=== PATIENT | female | born 1995 | race Caucasian/White ===

== ENCOUNTER 2021-08-22 12:46 | Outpatient (RCR) | payer OTHER, SELFPAY ==
--- NOTE | ~2021-08-22 | US_ITS ---
EXAMINATION: US OB limited w BPP DATE: 08/22/2021 14:17 INDICATION: Decreased movement. Assess biophysical profile and amniotic fluid index TECHNIQUE: Real-time pelvic ultrasound was performed. The interpreting radiologist was not present fo r the study. COMPARISON: None. FINDINGS: There is a single living fetus in vertex presentation. The placenta is anterior. heart rate is 142 beats per minute (bpm). Amniotic fluid index measures 12.5 cm which is normal. (5th%-95%: 7.7-24 .9 cm at 36 weeks estimated gestational age) Biophysical profile performed by the technologist: breathing (30 sec sustained breathing in 30 minutes): 2 out of 2 movement (3 gross body movements in 30 minutes): 2 out of 2 tone (one episode of npksxrb-ygfpozsgj-qowcmgf limb movement): 2 out of 2 Amniotic fluid pocket (2 cm): 2 out of 2 Total score: 8 out of 8 IMPRESSION: 1. Single living fetus in vertex presentation with heart rate of 142 bpm. 2. Biophysical profile 8 out of 8. Reviewed, dictated and finalized at location B.
[2021-08-22 14:29] VITALS: BP 117/68; PULSE 105
== END 2021-09-22 08:18 | disposition home or self-care (01) ==
LOC: ANHOBOP 12:46
PROVIDERS: PCP Physician Assistant; Visit Provider Obstetrics & Gynecology
DX: O36.8330 Maternal care for abnormalities of the fetal heart rate or rhythm, third trimester, not applicable or unspecified (principal); Z3A.36 36 weeks gestation of pregnancy
CPT/HCPCS: 59025; 76815; 76819

== ENCOUNTER 2021-09-15 16:51 | Inpatient (IN) | payer OTHER, SELFPAY ==
[2021-09-15] VITALS (7 sets, daily range): BP systolic 108–124; BP diastolic 62–81; PULSE 81–100; BMI 39.1
--- NOTE | 2021-09-15 16:51 | LDADM ---
This patient, Rupinder Kaur, was admitted to Labor/Delivery/Recovery 108 on 09/15/21 at 16:51. Plans for labor, pain management and were discussed with patient. Patient/family oriented to hospital policies and general routines including ID bracelet, bed and alarms, visiting hours, pain management, procedures, bathroom and other care routines, personal items, smoking policy, room service/diet and guest tray routines, infant security routines, and visiting hours. Patient/Family are encouraged to report perceived risks to care and to ask questions if they do not understand what they are told or what they should do. See OBIX for further documentation.
--- NOTE | 2021-09-15 17:31 | PC.NURSE ---
Orders received from Dr. Girard to admit pt and start cervidil. [facility] labs. GBS negative per Dr. Girard.
--- NOTE | 2021-09-15 17:45 | WPDANESEPP ---
Anes - Eval Pre Procedure Procedure: labor epidural Date/Time: 09/15/21 17:45 Surgeon: kirstin Preop Diagnosis: pain during labor Pre Op Diagnosis: IOL Patient Data Age: 26 Gender: F Height: Weight: Allergies Allergy/AdvReac Type Severity Reaction Status Date / Time No Known Allergies Allergy Verified 07/22/21 15:45 Home Medications Medication Instructions Recorded Confirmed Type aspirin 81 mg tablet,delayed 81 mg PO DAILY 06/09/21 08/26/21 History release citalopram 20 mg tablet 20 mg PO DAILY 06/09/21 08/26/21 History PNV cmb#95-ferrous fumarate-FA 1 tablet PO DAILY 08/18/21 08/26/21 History [] Patient hx anesthesia problems: none Family hx anesthesia problems: none Results Review: All pre-operative results and documents have been reviewed as part of the pre-operative evaluation. [facility] Past Medical History Medical History (Updated 09/15/21 @ 17:46 by Airam Jenkins CRNA) Anxiety IUP (intrauterine ), incidental Obesity Surgical History Surgical History History of gynecological procedure Nexplanon removal /insertion -08/02/2018. Nexplanon removal 10/07/2020 Family History Family History Grandparent Diabetes mellitus Breast cancer Social History Social History (Updated 06/09/21 @ 13:12 by Floresita Najera MA) Smoking status: Former smoker Alcohol intake: never Substance use: never Substance use type: does not use Gender identity (if verbalized by the patient): Female Sexual Orientation (if Verbalized by the Patient): Straight or Heterosexual Spiritual care concerns: No Exam Day of Procedure 09/15/21 17:45
[2021-09-15 18:07] LABS: Basophils Percent Auto 0.2 % (0.2-1.2); Eosinophils Absolute Auto 0.1 K/mm3 (0-0.3); Eosinophils Percent Auto 0.5 % (0-4.4); Hematocrit 35.8 % (37.0-47.0); Hemoglobin 11.3 g/dL (12.0-15.0); Immature Granulocyte Absolute 0.17 K/mm3 (0.00-0.031); Lymphocytes Absolute Auto 2.86 K/mm3 (0.9-3.2); Lymphocytes Percent Auto 17.4 % (18.3-44.2); Mean Corpuscular HGB Conc 31.6 g/dl (32-36); Mean Corpuscular Hemoglobin 27.6 pg (26-34); Mean Corpuscular Volume 87.3 fl (80-100); Mean Platelet Volume 10.7 fl (7.4-10.4); Monocytes Absolute Auto 1.2 K/mm3 (0.1-0.6); Monocytes Percent Auto 7.1 % (2.6-8.5); Neutrophils Absolute Auto 12.1 K/mm3 (1.3-6.7); Neutrophils Percent Auto 73.8 % (45.5-73.1); Platelet Count Result 361 k/mm3 (150-375); White Blood Count 16.4 K/mm3 (4.5-10.0)
[2021-09-15 18:36] LABS: Alanine Aminotransferase 11 U/L (4-35); Albumin Level 3.4 g/dL (3.5-5.1); Alkaline Phosphatase 144 U/L (38-126); Anion Gap 6 mmol/L (8-16); Aspartate Amino Transferase 19 U/L (14-36); Bilirubin,Total 0.2 mg/dL (0.2-1.3); Blood Urea Nitrogen 14 mg/dL (7-17); Calcium 9.3 mg/dL (8.4-10.2); Carbon Dioxide 22 mmol/L (22-30); Chloride 106 mmol/L (98-107); Estimated CRCL calculation 106 ml/min; Estimated Glomerular Filt Rate > 60; Glucose 82 mg/dL (65-110); Potassium 4.6 mmol/L (3.4-5.0); Sodium 134 mmol/L (137-145)
[2021-09-15] MEDS: DINOPROSTONE 10 MG VAG INSERT VAGINAL (18:45)
[2021-09-16] VITALS (39 sets, daily range): BP systolic 100–160; BP diastolic 60–93; PULSE 69–105; RESP 18–20; TEMP 36.3–36.9
--- NOTE | 2021-09-16 06:33 | PM.IMHP ---
H&P: HPI History of Present Illness Date/Time: 09/16/21 06:33 Rupinder is a 26yo @ 40.1wks (MELODY 09/15/21) who presented to L&D overnight with complaints of swelling, headache, and had been checking her BPs at home and were >140's/90's. Since being on L&D, her BPs have been normal and sh denies any symptoms of PEC. She reports good movement. No ctx, vb, lof. She is s/p cervidil overnight and still only finger tip. Her is complicated by: - Obesity - Anxiety on citalopram Chief Complaint: elevated blood pressure Review of Systems Review of Systems: All systems reviewed & are unremarkable except as noted in HPI and below (HPI) [facility] Past Medical History Medical History Anxiety IUP (intrauterine ), incidental Obesity Surgical History Surgical History History of gynecological procedure Nexplanon removal /insertion -08/02/2018. Nexplanon removal 10/07/2020 Family History Family History Grandparent Diabetes mellitus Breast cancer Social History Social History Smoking status: Never smoker Alcohol intake: never Substance use: never Substance use type: does not use Gender identity (if verbalized by the patient): Female Sexual Orientation (if Verbalized by the Patient): Straight or Heterosexual Spiritual care concerns: No Meds Home Medications and Allergies Home Medications Medication Instructions Recorded Confirmed Type aspirin 81 mg tablet,delayed 81 mg PO DAILY 06/09/21 08/26/21 History release citalopram 20 mg tablet 20 mg PO DAILY 06/09/21 08/26/21 History PNV cmb#95-ferrous fumarate-FA 1 tablet PO DAILY 08/18/21 08/26/21 History [] Allergies Allergy/AdvReac Type Severity Reaction Status Date / Time No Known Allergies Allergy Verified 07/22/21 15:45 Vital Signs Vital Signs - 24 hr 09/15/21 18:02 09/15/21 18:30 09/15/21 19:01 Pulse Rate 100 95 95 Blood Pressure 111/62 116/73 108/65 09/15/21 19:30 09/15/21 20:01 09/15/21 20:31 Pulse Rate 83 82 89 Blood Pressure 117/77 117/81 124/77 09/15/21 23:37 Pulse Rate 81 Blood Pressure 116/62 Exam Const: General: cooperative, comfortable and no acute distress Resp: Effort & Inspection: normal respiratory effort Cardio: Rate: regular rate GI: Inspection: normal to inspection GI Palp: No abdominal tenderness and Yes Soft to palpation : Other: FHT's:130's/ mod betty/ + accels/ no decels - cat 1 TOCO: irritability Cervix: finger tip/50/-3 Membranes: intact Presentation: cephalic Skin: General skin exam: normal color Neuro: General: patient oriented x3 Psych: Appearance: grossly normal Affect: normal affect Attitude: cooperative H&P: Results Labs Labs: Short CBC 09/15/21 Range/Units 18:00 WBC 16.4 H (4.5-10.0) K/mm3 Hgb 11.3 L (12.0-15.0) g/dL Hct 35.8 L (37.0-47.0) % Plt Count 361 (150-375) k/mm3 BMP 09/15/21 18:16 Sodium 134 L Potassium 4.6 Chloride 106 Carbon Dioxide 22 BUN 14 Creatinine 0.90 Glucose 82 Calcium 9.3 Liver Function 09/15/21 Range/Units 18:16 Total Bilirubin 0.2 (0.2-1.3) mg/dL AST 19 (14-36) U/L ALT 11 (4-35) U/L Alkaline Phosphatase 144 H (38-126) U/L Albumin 3.4 L (3.5-5.1) g/dL Assessment and Plan Assessment and plan (1) IUP (intrauterine ), incidental: Code(s): Z33.1 - state, incidental Status: Acute Additional Plan - Admitted to L&D for IOL; s/p Cervidil overnight w/ unfavorable cervix, will now place misoprostol - Labs and BP's stable; P/C pending - Continuous monitoring; currently reassuring - GBS negative - Anesthesia consult PRN pain
--- NOTE | 2021-09-16 06:45 | WPDHPUPDATE1 ---
History and Physical Update Update Date/Time: 09/16/21 06:45 History and Physical has been reviewed, including an updated exam of the patient. There are NO changes in the patient's condition. Risks, benefits, and alternatives have been discussed and questions answered. Patient agrees to proceed with procedure.
[2021-09-16 07:32] LABS: Rapid Plasma Reagin Non-Reactive (NonReactive)
[2021-09-16] MEDS: miSOPROStol 25 MCG TABLET VAGINAL (07:57)
--- NOTE | 2021-09-16 11:05 | PC.NURSE ---
Lab called they will run Uric acid off blood from yesterdays [facility].
[2021-09-16 11:36] LABS: Uric Acid 4.1 mg/dL (2.5-7.5)
[2021-09-16 11:56] LABS: Creatinine Urine 195.3 mg/dL
[2021-09-16 12:05] LABS: Total Protein Urine Random < 5 mg/dL
--- NOTE | 2021-09-16 12:37 | PM.OBPNLAB ---
Pain Control Date/time seen: 09/16/21 12:37 Pain control: tolerating well Pelvic Exam Dilation (cm): 1 (.5) Effacement (%): 60 station: -3 Amniotic membrane status: Intact Contractions Monitor mode: External Contraction pattern: Regular Contraction intensity: Mild Status status: Category l Assessment and Plan Assessment: induction ongoing Plan: continuous present management Comments: - Carrillo balloon placed w/ 30cc of flui @ 1235 - ok to start low dose pit to 4mu - If balloon comes out; can increase pitocin per protocol - anesthesia consult PRN pain
[2021-09-16] MEDS: OXYTOCIN 30 UNITS/NS 500 ML 30 UNITS/500 ML BAG 6 UNITS IV CONT (13:03)
[2021-09-16] MEDS: LACTATED RINGERS 1,000 ML 125 ML IV CONT (13:03)
[2021-09-16] MEDS: ONDANSETRON INJ 4 MG/2 ML VIAL IV PUSH (16:15)
--- NOTE | 2021-09-16 16:47 | PM.OBPNLAB ---
Pain Control Date/time seen: 09/16/21 16:47 Pain control: tolerating well Comments: likely wanting epidural soon Pelvic Exam Dilation (cm): 4 Effacement (%): 75 station: -2 Amniotic membrane status: Ruptured (SROM, clear 1603) Contractions Monitor mode: External Contraction frequency: 2 Contraction pattern: Regular Contraction intensity: Moderate Status status: Category l Assessment and Plan Pitocin rate (mU/min): 4 Assessment: induction ongoing Plan: continuous present management
[2021-09-16] MEDS: fentaNYL CITRATE INJ (*CRX) 100 MCG/2 ML VIAL 50 MCG IV PUSH ×4 (16:50→22:09)
[2021-09-17] VITALS (115 sets, daily range): BP systolic 93–164; BP diastolic 35–131; PULSE 71–129; RESP 16; TEMP 36.3–37.7; O2SAT 93–100
[2021-09-17] MEDS: LACTATED RINGERS 1,000 ML 125 ML IV CONT ×3 (00:25→08:52)
[2021-09-17] MEDS: PHENYLEPHRINE 1,000 MCG/10 ML SYRINGE 100 MCG IV PUSH ×2 (02:08→02:13)
--- NOTE | 2021-09-17 07:01 | PM.OBPNLAB ---
Pain Control Date/time seen: 09/17/21 07:01 Pain control: epidural Pelvic Exam Dilation (cm): 8 Effacement (%): 100 station: -1 Amniotic membrane status: Ruptured (SROM, clear 1603 (09/16/21)) Contractions Monitor mode: Internal Contraction frequency: 3 (-4) Contraction pattern: Regular Contraction intensity: Moderate Status status: Category l Comments: late decels noted after epidural due to hypotension; pitocin stopped, IV fluid bolus, oxygyn and position change occured with resolution back to baseline; pitocin restarted at 0330 Assessment and Plan Pitocin rate (mU/min): 12 Assessment: active labor Plan: continuous present management Comments: - protracted labor with inadequate contractions - will continue increasing pitocin
[2021-09-17] MEDS: AMPICILLIN 2 GM/NS 100 ML 2 GM/100 ML BAG IVPB (10:02)
--- NOTE | 2021-09-17 12:37 | PM.OBPRVD ---
OB - Delivery Note Procedure Delivery date: 09/17/21 Events: Elective Induction of Labor Induction method: Per Misoprostol Protocol, Per Cervidil Protocol and Other (shoemaker balloon) Delivery augmentation: Pitocin Delivery monitor: External FHT and Internal Uterine Route of delivery: Laceration Description: Vaginal Delivery repair: vicryl Specimen: No Quantitative Blood Loss (ml): 100 Anesthesia type: Epidural Disposition: Floor Baby Date of : 09/17/21 Time of : 12:17 Weeks of gestation at delivery: 40 (.2) Infant gender: Male Weight (pounds): 9 Weight (ounces): 13 presentation: vertex position: Right Occiput Anterior Placenta delivery description: Expressed Cord Vessel Description: 3 Vessels and Delayed Cord Clamping score one minute: 8 score five minutes: 9 Narrative: Rupinder progressed to complete dilation after a long induction and protracted active labor course due to inadequate contractions. She pushed with good maternal effort for approximately 1 hour and delivered the head over intact perineum. She easily delivered the 's shoulders and body without complication. The was immediately placed skin to skin and had spontaneous cry. His mouth and nose were bulb suction. Delayed cord clamping was performed. A segment of the cord was collected for cord gases. The remaining cord blood was collected for typing. With Pitocin running and gentle downward traction on the cord, the placenta delivered without complications. The fundus was found to be firm with minimal bleeding. Patient was examined and a small vaginal laceration was noted. It was repaired in the normal fashion using 2-0 Vicryl. Good hemostasis was noted. The uterus remained firm with minimal bleeding. Sponge, lap, instrument, needle counts were correct at the end the procedure. Mom and baby were left bonding in the birthing suite in stable condition. [facility] Delivery Billing Delivery Delivery: Delivery Charge
[2021-09-17] MEDS: OXYTOCIN 30 UNITS/NS 500 ML 30 UNITS/500 ML BAG 125 UNITS IV CONT (12:44)
[2021-09-17] MEDS: ONDANSETRON INJ 4 MG/2 ML VIAL IV PUSH (13:24)
[2021-09-17] MEDS: WITCH HAZEL 40 PADS 1 PAD TOPICAL (14:47)
[2021-09-17] MEDS: BENZOCAINE 20% AER SPR (*SP) 56 GM CAN 1 SPRAY TOPICAL (14:47)
[2021-09-17] MEDS: ACETAMINOPHEN 325 MG TABLET 650 MG PO (22:40)
[2021-09-18 04:00] VITALS: BP 109/71; PULSE 80; RESP 16; TEMP 36.8; O2SAT 97
[2021-09-18 05:20] LABS: Hematocrit 30.3 % (37.0-47.0); Hemoglobin 9.8 g/dL (12.0-15.0)
--- NOTE | 2021-09-18 07:11 | PM.OBPNVD ---
OB - PN: Subj Subjective Date/time seen: 09/18/21 07:11 Narrative: PPD#1 Rupinder reports doing well today. 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 Her pain is controlled. She is tolerating regular diet, voiding, passing gas, and ambulating without issues. She is breast feeding but has very sore nipples; so also bottle feeding. She would like her son circumcised. OB - PN: Obj Data Labs CBC & Chem 7: 09/18/21 04:06 09/15/21 18:16 Labs: Laboratory Results - last 24 hr 09/18/21 04:06 Hgb 9.8 L Hct 30.3 L OB - PN A/P Assessment and Plan (1) Status post vaginal delivery: Status: Acute Plan day: 1 Plan: routine care Comments: - Discharge home tomorrow; will have help with pumping/breast feeding - Pelvic rest; take meds as prescribed - ER return precautions: fever, n/v/abd pain, bleeding, HTN Time Spent With Patient Time: Total time spent is greater than 50% in coordination of care (as documented) at patient's floor/unit and/or counseling patient: Review of Systems Constitutional: Constitutional: Denies chills, Denies fever(s) and Denies headache(s) Eyes: Eyes: Denies change in vision ENT: Denies dizziness and Denies headache(s) Cardiovascular: Cardiovascular: Denies chest pain, Denies palpitations and Denies dyspnea Respiratory: Respiratory: Denies cough and Denies dyspnea Gastrointestinal: Gastrointestinal: Denies nausea and Denies vomiting Neurologic: Denies dizziness and Denies headache(s) Endocrine: Endocrine: Denies palpitations Exam Const: General: cooperative, comfortable and no acute distress Orientation/consciousness: patient oriented x3 Resp: Effort & Inspection: normal respiratory effort Auscultation: clear to auscultation bilaterally Cardio: Rate: regular rate GI: Inspection: non-distended GI Palp: No abdominal tenderness and Yes Soft to palpation Auscultation: normal bowel sounds : Other: fundus firm Skin: General skin exam: normal color Neuro: General: patient oriented x3 Extrem: General: normal to inspection Psych: Appearance: grossly normal Affect: normal affect Attitude: cooperative
[2021-09-18 07:55] VITALS: BP 120/68; PULSE 85; RESP 20; TEMP 36.3; O2SAT 99
[2021-09-18] MEDS: MULTIVIT/MIN/PREN/FOL AC/IRON TABLET 1 TAB PO (08:21)
[2021-09-18] MEDS: DOCUSATE SODIUM 100 MG CAPSULE PO (08:21)
[2021-09-18] MEDS: POLYSACCHARIDE IRON COMPLEX 150 MG CAPSULE PO (08:21)
[2021-09-18] MEDS: CITALOPRAM HYDROBROMIDE 20 MG TABLET PO (08:21)
[2021-09-18] MEDS: IBUPROFEN 600 MG TABLET PO (08:22)
[2021-09-18 11:42] VITALS: BP 116/67; PULSE 77; RESP 18; TEMP 36.4; O2SAT 98
--- NOTE | 2021-09-18 13:39 | PC.NURSE ---
[id number] Introductions were made, then consulted with patient to assess needs related to . Mother led the conversation with her experience feeding her so far. Breast are clonical in shape and wide apart from each other. Mother works well with her infant with encouragement and education. Encouraged understanding of the benefits of skin to skin (unwrapping infant and placing vertically on her chest), responsive feeding and how to watch for early feeding signs, frequency of feeding on demand about every 8-12 times in 24 hours (every 2-3 hours), milk production, duration of feeding, signs of adequate intake/output and how to record on the feeding sheet. Demonstrated stimulating to eat after mother states infant is sleepy and doesn't want to breastfeed. Mother has a bottle out on the bed preparing to feed her infant. Clarified her plan to feed her baby. Patient declines working on latch her . Information regarding pumping, milk production, and human milk supply. Mother makes a decision to bottle feed her infant. Resources used to facilitate learning were used with the mom and baby guide. Mother voiced understanding of education. Reported to the primary RN.
--- NOTE | 2021-09-18 14:28 | WPDANLDPN2 ---
Anes-Prog Note L&D Date/Time: 09/18/21 14:28 Comfortable throughout: labor and delivery Neuraxial method: epidural Epidural/Spinal procedure site: clean & non-tender Neuro status: Neuro function grossly intact. Cardiovascular status: normal Respiratory status: normal Airway patency: baseline Mental status: baseline Post-Op hydration status: normal Vital Signs: Last Vital Signs Temp 36.4 C 09/18/21 11:42 Pulse 77 09/18/21 11:42 Resp 18 09/18/21 11:42 BP 116/67 09/18/21 11:42 Pulse Ox 98 09/18/21 11:42 Pain score (VAS): 0 Post-procedural complaints: none Patient feedback: Patient satisfied with anesthetic care.
--- NOTE | 2021-09-18 14:45 | PC.NURSE ---
Patient viewed the discharge video Mother & Baby Care, The First Two Weeks . Patient was given the opportunity and encouraged to ask questions. Patient verbalized understanding of information shared and has been given the mother/baby guide for home reference.
--- NOTE | 2021-09-19 12:05 | PM.OBDSVD ---
DS: Admitting Diagnosis Discharge Date 09/18/21 Admitting Diagnosis Induction of labor DS: Discharge Diagnosis Discharge Diagnosis (1) Status post vaginal delivery: Status: Acute OB - DS: Summary OB Procedures : Ultrasound OB Procedures Intrapartum: Spontaneous Vag Delivery OB Procedures: : None Peripartum Data Infant Delivery Method: Natural Vaginal Laceration Description: Vaginal - 1st Degree complications: none 1: Gender: Male Disposition of : home Status at Discharge Functional status at discharge: independent ambulation Overall status at discharge: patient is back to baseline Time Spent with Patient Time attestation: Total time spent providing and/or coordinating discharge services: Time spent: Less than 30 minutes Exam Const: General: cooperative, comfortable and no acute distress Orientation/consciousness: patient oriented x3 Resp: Effort & Inspection: normal respiratory effort Auscultation: clear to auscultation bilaterally Cardio: Rate: regular rate GI: Inspection: non-distended GI Palp: No abdominal tenderness and Yes Soft to palpation Auscultation: normal bowel sounds : Other: fundus firm Skin: General skin exam: normal color Neuro: General: patient oriented x3 Extrem: General: normal to inspection Psych: Appearance: grossly normal Affect: normal affect Attitude: cooperative Discharge Plan Discharge Attending physician on discharge: Ginger Girard Consulting providers: Airam Jenkins ; Lynne Szymanski Discharging Clinician: Ginger Girard Anticipated Discharge Date/Time: 09/18/21 16:00 Patient Disposition: Home, Self-Care Activity: may shower, no straining and pelvic rest Diet: regular Discharge Instructions: Education: Mom and Baby Guide and Preeclampsia Handout Given to: Mother Follow-Up: Call your delivering provider's office for an appointment to be seen in: 4 weeks Mom and baby should come to the [facility] for the follow-up appointment. Appointment Date/Time: September 19, 2021 at 12:00 pm What to expect at your follow-up visit: Physical Assessment Call [phone] if you are unable to keep your appointment time. BREAST CARE: * Wear a snug supportive bra. * For engorgement discomfort: Bottle Feeding: * May apply ice packs EPISIOTOMY/PERINEAL CARE: * Until bleeding stops, use your wesly bottle after urinating * Change your pad frequently throughout the day * You may take sitz baths several times a day (fill your bathtub with warm water and soak for 20 minutes.) Do NOT bathe in the water * No tub baths until seen by your physician - You may shower ACTIVITY: * Rest as much as possible. * Do not exercise or lift anything heavier than your baby (such as laundry or other children.) * Avoid stairs or driving as much as possible. * Do not put anything into the vagina. No douching, tampons, or sexual activity until seen by physician. NOTIFY PHYSICIAN IF YOU HAVE ANY QUESTIONS OR IF ANY OF THE FOLLOWING SYMPTOMS OCCUR: * If your episiotomy or stitches becomes red, swollen, or more painful than what you have experienced in the hospital. * If your vaginal bleeding becomes foul smelling. * If your vaginal bleeding becomes more heavy than a period or if your bleeding changes from pink to bright red. However, you may pass an occasional walnut-sized clot once or twice for the first week . * If you experience a sharp, shooting pain in you calves. * If you discover a hard, reddened area on your breast or if you experience flu-like symptoms. DIET: * Eat regular, well-balanced meals. * Drink plenty of fluids daily. Stand Alone Forms: General Discharge Information Follow-up/Referrals: Ginger Girard MD [Physician] - 4 Weeks Discharge Medications: New acetaminophen [Mapap (acetaminophen)] 325 mg Tablet 650 mg PO Q6H PRN (Reason: M
[2021-09-19 12:13] VITALS: BP 131/65; PULSE 71; RESP 22; TEMP 36.9; O2SAT 100
== END 2021-09-18 15:30 | disposition home or self-care (01) | DRG 807 ==
LOC: ANHLDR 17:01 → ANHOB2 09-17 15:11
PROVIDERS: Admitting Provider Obstetrics & Gynecology; PCP Physician Assistant; Visit Provider Obstetrics & Gynecology
DX: O42.92 Full-term premature rupture of membranes, unspecified as to length of time between rupture and onset of labor (principal); Z37.0 Single live birth; Z3A.40 40 weeks gestation of pregnancy; O13.4 Gestational [pregnancy-induced] hypertension without significant proteinuria, complicating childbirth; O36.8330 Maternal care for abnormalities of the fetal heart rate or rhythm, third trimester, not applicable or unspecified; O99.344 Other mental disorders complicating childbirth; F41.9 Anxiety disorder, unspecified; O99.214 Obesity complicating childbirth; E66.9 Obesity, unspecified
CPT/HCPCS: 36415; 80053; 81050; 82570; 84156; 84550; 85014; 85018; 85025; 86592; 86850; 86900; 86901; A9270; J0290; J2370; J2405; J2590; J2795; J3010; J7120

== ENCOUNTER 2021-10-10 06:04 | Emergency (ER) | payer OTHER, SELFPAY ==
--- NOTE | ~2021-10-10 | XR_ITS ---
EXAMINATION: XR chest 2V DATE: 10/10/2021 07:02 INDICATION: Left chest pain. TECHNIQUE: Frontal and lateral views of the chest were obtained. COMPARISON: None. FINDINGS: The chest demonstrates clear lungs without pneumonia, pleural effusion, or pneumothorax. Th e heart size is normal. IMPRESSION: 1. No acute cardiopulmonary disease. Reviewed, dictated and finalized at location A.
[2021-10-10 06:05] VITALS: BP 140/80; PULSE 74; RESP 18; TEMP 36.1; O2SAT 100
--- NOTE | 2021-10-10 06:12 | ECG_ITS ---
Measurements Intervals [place] Rate: 74 P: 11 [place]: 128 QRS: 24 QRSD: 95 T: 35 QT: 370 QTc: 411 Interpretive Statements SINUS RHYTHM NORMAL ECG Electronically Signed On 10-10-2021 17:08:24 CDT by Ab Marquez D.O.
[2021-10-10 06:18] VITALS: BP 140/92; PULSE 80; RESP 15; O2SAT 100
[2021-10-10] MEDS: KETOROLAC 30 MG/ML VIAL (*BKC) IV PUSH (06:22)
--- NOTE | 2021-10-10 06:35 | ED.CHESTPAIN ---
HPI - Chest Pain General Chief Complaint: Chest Pain <Julian Llamas MD - Last Filed: 10/10/21 06:39> Stated Complaint: chest pain <Julian Llamas MD - Last Filed: 10/10/21 06:39> Time Seen by Provider: 10/10/21 06:11 <Julian Llamas MD - Last Filed: 10/10/21 06:39> History of Present Illness HPI narrative: Patient is a 26-year-old female who presents ER with central chest pain. Began in the last hour. Sharp. No aggravating alleviating factors. Took a Tums without improvement. No bad taste in back of mouth. No nausea or vomiting. Patient is 2 weeks from a vaginal delivery. No new lower extremity swelling or muscle cramps. No fevers or chills or sweats. No productive cough. <Julian Llamas MD - Last Filed: 10/10/21 06:39> Related Data Allergies/Adverse Reactions: Allergies Allergy/AdvReac Type Severity Reaction Status Date / Time No Known Allergies Allergy Verified 07/22/21 15:45 <Julian Llamas MD - Last Filed: 10/10/21 06:39> Review of Systems Review of Systems: All systems reviewed & are unremarkable except as noted in HPI and below <Julian Llamas MD - Last Filed: 10/10/21 06:39> Constitutional: Constitutional: Denies chills, Denies fatigue and Denies fever(s) <Julian Llamas MD - Last Filed: 10/10/21 06:39> ENT: Denies nasal congestion and Denies sore throat <Julian Llamas MD - Last Filed: 10/10/21 06:39> Cardiovascular: Cardiovascular: Reports chest pain, Denies rapid heart rate and Denies radiating jaw, neck or arm pain <Julian Llamas MD - Last Filed: 10/10/21 06:39> Respiratory: Respiratory: Denies chest congestion, Denies cough and Denies dyspnea <Julian Llamas MD - Last Filed: 10/10/21 06:39> Gastrointestinal: Gastrointestinal: Denies abdominal pain, Denies nausea and Denies vomiting <Julian Llamas MD - Last Filed: 10/10/21 06:39> Musculoskeletal: Musculoskeletal: Denies back pain and Denies myalgias <Julian Llamas MD - Last Filed: 10/10/21 06:39> PMFSH Past Medical History Medical History: Medical History Anxiety IUP (intrauterine ), incidental Obesity <Julian Llamas MD - Last Filed: 10/10/21 06:39> Surgical History Surgical History: Surgical History History of gynecological procedure Nexplanon removal /insertion -08/02/2018. Nexplanon removal 10/07/2020 <Julian Llamas MD - Last Filed: 10/10/21 06:39> Family History Family History: Family History Grandparent Diabetes mellitus Breast cancer <Julian Llamas MD - Last Filed: 10/10/21 06:39> Social History Social History: Social History Smoking status: Never smoker Alcohol intake: never Substance use: never Substance use type: does not use Gender identity (if verbalized by the patient): Female Sexual Orientation (if Verbalized by the Patient): Straight or Heterosexual Spiritual care concerns: No <Julian Llamas MD - Last Filed: 10/10/21 06:39> Exam Narrative: GENERAL: Well-appearing, well-nourished, and in no acute distress. HEAD: Normocephalic, atraumatic. CHEST: Clear to auscultation. No respiratory distress. No reproducible tenderness. HEART: Regular rate and rhythm. Normal peripheral pulses. ABDOMEN: Soft, nontender, nondistended. EXTREMITIES: Normal range of motion. No edema. SKIN: Warm, dry, no rash. NEURO: Alert and oriented x3. PSYCH: Normal mood and affect. <Julian Llamas MD - Last Filed: 10/10/21 06:39> Course Reevaluation(s) Reevaluation #1: Currently patient is asymptomatic, no chest pain, feels much better after Toradol injection. Patient was notified that if the second set of troponin is negative she will be discharged home.
[2021-10-10 06:37] LABS: Basophils Absolute Auto 0.1 K/mm3 (0.0-0.1); Basophils Percent Auto 0.4 % (0.2-1.2); Eosinophils Absolute Auto 0.3 K/mm3 (0-0.3); Eosinophils Percent Auto 2.6 % (0-4.4); Hematocrit 41.8 % (37.0-47.0); Hemoglobin 13.2 g/dL (12.0-15.0); Immature Granulocyte Absolute 0.04 K/mm3 (0.00-0.031); Immature Granulocyte Percent A 0.3 % (0-0.5); Lymphocytes Absolute Auto 3.81 K/mm3 (0.9-3.2); Lymphocytes Percent Auto 32.5 % (18.3-44.2); Mean Corpuscular HGB Conc 31.6 g/dl (32-36); Mean Corpuscular Hemoglobin 27.3 pg (26-34); Mean Corpuscular Volume 86.4 fl (80-100); Mean Platelet Volume 9.8 fl (7.4-10.4); Monocytes Percent Auto 8.5 % (2.6-8.5); Neutrophils Absolute Auto 6.5 K/mm3 (1.3-6.7); Neutrophils Percent Auto 55.7 % (45.5-73.1); Platelet Count Result 402 k/mm3 (150-375); Red Blood Count 4.84 M/mm3 (4.2-5.4); Red Cell Distribution Width 14.6 % (11.5-14.5); White Blood Count 11.7 K/mm3 (4.5-10.0)
[2021-10-10 06:50] LABS: Prothrombin Time 12.6 Seconds (11.1-14.7)
[2021-10-10 06:51] LABS: Anion Gap 10 mmol/L (8-16); Blood Urea Nitrogen 15 mg/dL (7-17); Calcium 9.2 mg/dL (8.4-10.2); Carbon Dioxide 21 mmol/L (22-30); Chloride 107 mmol/L (98-107); Estimated CRCL calculation 101 ml/min; Estimated Glomerular Filt Rate > 60; Glucose 95 mg/dL (65-110); Partial Thromboplastin Time 33.9 SECONDS (22.3-36.8); Potassium 4.6 mmol/L (3.4-5.0); Sodium 138 mmol/L (137-145)
[2021-10-10 06:53] LABS: D Dimer 0.39 ug/mL (<0.48)
[2021-10-10 06:58] LABS: Troponin I < 0.012 ng/mL (0.000-0.034)
[2021-10-10 07:23] VITALS: BP 125/73; PULSE 86; RESP 18; O2SAT 99
--- NOTE | 2021-10-10 07:23 | PC.NURSE ---
Took report from the midnight nurse, pt resting in bed, family at bedside.
[2021-10-10 08:49] VITALS: BP 121/70; PULSE 80; RESP 18; O2SAT 100
[2021-10-10 09:54] LABS: Troponin I < 0.012 ng/mL (0.000-0.034)
[2021-10-10 10:48] VITALS: BP 123/78; PULSE 82; RESP 18; O2SAT 98
== END 2021-10-10 10:50 | disposition home or self-care (01) ==
PROVIDERS: Emergency Medicine; Emergency Provider Emergency Medicine; PCP Physician Assistant
DX: R07.89 Other chest pain (principal); F41.9 Anxiety disorder, unspecified
CPT/HCPCS: 36415; 71046; 80048; 84484; 85025; 85380; 85610; 85730; 93005; 96374; 99284; J1885

== ENCOUNTER 2021-11-19 17:27 | Outpatient (CLI) | payer OTHER, SELFPAY ==
[2021-11-19 18:23] LABS: Beta HCG Quantitative < 2.39 mIU/ML
== END 2021-11-19 17:28 | disposition home or self-care (01) ==
PROVIDERS: PCP Physician Assistant; Visit Provider Obstetrics & Gynecology
DX: N92.6 Irregular menstruation, unspecified (principal)
CPT/HCPCS: 36415; 84702

== ENCOUNTER 2023-05-19 18:40 | Emergency (ER) | payer OTHER, SELFPAY ==
[2023-05-19 18:52] VITALS: BP 120/82; PULSE 89; RESP 18; TEMP 36.3; O2SAT 100
--- NOTE | 2023-05-19 18:57 | ED.GENADULT ---
HPI - General Adult General Chief complaint: Upper Respiratory Infection Stated complaint: Congestion/Ear Problem Source: patient, RN notes reviewed and old records reviewed Mode of arrival: ambulatory Limitations: no limitations History of Present Illness HPI narrative: 28-year-old female presents to [facility] with complaints cough, congestion, sinus pressure, bilateral ear pressure, chills, sweating this started Wednesday. Patient states symptoms worsened Wednesday. Patient states son is sick too. Patient taking [id number] medications with no relief. Patient denies weakness, dizziness, chest pain, shortness of breath. MD complaint: Cough, congestion Onset (ago): day(s) (4) Related Data Home Medications Medication Instructions Recorded Confirmed etonogestrel 68 mg subdermal 1 implant subdermal ONCE 01/20/22 05/19/23 implant (Nexplanon) Allergies Allergy/AdvReac Type Severity Reaction Status Date / Time No Known Allergies Allergy Verified 05/19/23 18:58 Review of Systems Constitutional: Constitutional: Reports no additional constitutional complaints, Reports body ache(s), Denies chills, Denies fatigue, Reports fever(s) and Denies headache(s) Eyes: Eyes: Reports no additional eye complaints and Denies blurry vision ENT: Reports system reviewed and no additional complaints, except as documented, Denies vertigo, Denies dizziness, Denies ear discharge, Reports otalgia, Denies facial pain, Denies headache(s), Reports nasal congestion, Reports nasal discharge, Reports sinus pain, Denies sinus pressure and Denies sore throat Cardiovascular: Cardiovascular: Reports no additional cardiovascular complaints, Denies chest pain, Denies chest pain at rest, Denies rapid heart rate and Denies dyspnea Respiratory: Respiratory: Reports no additional respiratory complaints, Reports chest congestion, Reports cough, Denies pain on inspiration, Denies pain with cough and Denies dyspnea Gastrointestinal: Gastrointestinal: Denies abdominal pain, Denies diarrhea, Denies nausea and Denies vomiting Integumentary/Breasts: Skin/Breast: Denies rash Neurologic: Reports system reviewed and no additional complaints, except as documented, Denies vertigo, Denies dizziness and Denies headache(s) Endocrine: Endocrine: Denies fatigue PMFSH Past Medical History Medical History Anxiety IUP (intrauterine ), incidental Nexplanon insertion 11/20/2021 Obesity Surgical History Surgical History History of gynecological procedure Nexplanon removal /insertion -08/02/2018. Nexplanon removal 10/07/2020 Family History Family History Grandparent Diabetes mellitus Breast cancer Social History Social History Smoking status: Never smoker Alcohol intake: never Substance use: never Substance use type: does not use Lack of Transportation: No Lack of Food: Never True Current Housing: I Have Housing Concerned About Future Housing: No Difficulty Paying Gas/Electric Bills: No Difficulty Paying for Meds: No Currently Unemployed: No Education: High School Diploma/GED Difficulty w/ Childcare or Family Care: No Living arrangements: with family Occupation/Education: occupation Gender identity (if verbalized by the patient): Female Sexual Orientation (if Verbalized by the Patient): Straight or Heterosexual Spiritual care concerns: No Comments At the time of my signature, I reviewed and agree with the nursing past medical, surgical, social, and family history. There is no relevant family history pertinent to the patient complaint. Exam Const: General: cooperative, healthy appearing, no acute distress and well nourished Nutritional Appearance: well nourished Orientation/consciousness:
== END 2023-05-19 19:20 | disposition home or self-care (01) ==
PROVIDERS: Emergency Provider Registered Nurse; PCP Physician Assistant
DX: J10.1 Influenza due to other identified influenza virus with other respiratory manifestations (principal); Z20.822 Contact with and (suspected) exposure to COVID-19; E66.9 Obesity, unspecified; Z68.33 Body mass index [BMI] 33.0-33.9, adult; F41.9 Anxiety disorder, unspecified
CPT/HCPCS: 87426; 87804; 99213; C9803; G0463

== ENCOUNTER 2023-09-10 12:26 | Emergency (ER) | payer OTHER, SELFPAY ==
--- NOTE | ~2023-09-10 | XR_ITS ---
EXAMINATION: XR ankle RT min 3V DATE: 09/10/2023 12:59 INDICATION: Right ankle injury. TECHNIQUE: 4 views of right ankle were obtained. COMPARISON: None. FINDINGS: Bone alignment is normal. No fracture. Joint spaces are normal. There is ankle soft tissue swelling. IMPRESSION: 1. No fracture. Reviewed, dictated and finalized at location A. IMPRESSION: 1. No fracture.
[2023-09-10 12:34] VITALS: BP 99/66; PULSE 72; RESP 16; TEMP 36.8; O2SAT 100
--- NOTE | 2023-09-10 12:46 | ED.LOWEXIN ---
HPI - Extremity Injury (Lower) General Chief Complaint: Extremity Injury, Lower Stated Complaint: INJURED R ANKLE Time Seen by Provider: 09/10/23 12:42 Source: patient and RN notes reviewed Mode of arrival: ambulatory Limitations: no limitations History of Present Illness HPI Narrative: Patient presents today complaining of right ankle pain. She was at home last night and twisted her ankle in all hole outside. Currently rates her pain 6/10. She has tried no medication for symptoms prior to arrival. She has been ambulatory since the injury. Denies numbness or tingling. Related Data Home Medications Medication Instructions Recorded Confirmed No Home Medications 09/10/23 09/10/23 Allergies Allergy/AdvReac Type Severity Reaction Status Date / Time No Known Allergies Allergy Verified 09/10/23 12:50 Review of Systems Review of Systems: CONSTITUTIONAL: Denies body aches, fever, chills, or sweats. EYES: Denies visual changes, redness, or discharge. ENT: Denies rhinorrhea, congestion, sore throat, or otalgia. CARDIOVASCULAR: Denies chest pain, palpitations, or edema. RESPIRATORY: Denies cough or dyspnea. GASTROINTESTINAL: Denies abdominal pain, nausea, vomiting, or diarrhea. GENITOURINARY: Denies dysuria or hematuria. SKIN: Denies rash, itching, or wounds. MUSCULOSKELETAL: Denies back pain, or myalgia.+ right ankle pain NEUROLOGIC: Denies headache, numbness, tingling, or weakness. PSYCH: Denies depression or anxiety. [facility] Past Medical History Medical History Anxiety IUP (intrauterine ), incidental Nexplanon insertion 11/20/2021 Obesity Surgical History Surgical History History of gynecological procedure Nexplanon removal /insertion -08/02/2018. Nexplanon removal 10/07/2020 Family History Family History Grandparent Diabetes mellitus Breast cancer Social History Social History Smoking status: Never smoker Alcohol intake: never Substance use: never Substance use type: does not use Lack of Transportation: No Lack of Food: Never True Current Housing: I Have Housing Concerned About Future Housing: No Difficulty Paying Gas/Electric Bills: No Difficulty Paying for Meds: No Currently Unemployed: No Education: High School Diploma/GED Difficulty w/ Childcare or Family Care: No Living arrangements: with family Occupation/Education: occupation Gender identity (if verbalized by the patient): Female Sexual Orientation (if Verbalized by the Patient): Straight or Heterosexual Spiritual care concerns: No Comments At time of signature, I have reviewed and agree with nursing past medical, surgical, social and family history unless otherwise noted. Please see nursing chart for further information. There is no relevant family history pertinent to the presenting complaint Exam Narrative: GENERAL: Well-appearing, well-nourished, and in no acute distress. HEAD: Normocephalic, atraumatic. EYES: EOMI. No redness or drainage. Conjunctivae normal. ENT: Mucous membranes pink and moist. NECK: Normal AROM. CHEST: No respiratory distress. EXTREMITIES: Right ankle: Tenderness and moderate edema to the l lateral malleolus. No tenderness anteriorly, posteriorly, or medially. No tenderness to the foot. Distal sensation intact. Capillary refill normal. Pedal pulse normal. Full range of motion. SKIN: Warm, dry, no rash. Capillary refill normal. Normal skin turgor. NEURO: No focal deficits. Alert and oriented x3. Gait steady. PSYCH: Normal affect. No signs of depression or anxiety. Course Course Level of Care: Express Care Visit Vital Signs Vital signs: Vital Signs Temperature 98.2 F 09/10/23 12:34 Pulse Rate
== END 2023-09-10 13:14 | disposition home or self-care (01) ==
PROVIDERS: Emergency Provider Nurse Practitioner; PCP Physician Assistant
DX: S93.401A Sprain of unspecified ligament of right ankle, initial encounter (principal); X50.9XXA Other and unspecified overexertion or strenuous movements or postures, initial encounter; E66.9 Obesity, unspecified; Z68.28 Body mass index [BMI] 28.0-28.9, adult
CPT/HCPCS: 73610; 99213; G0463

== ENCOUNTER 2024-01-17 14:59 | Emergency (ER) | payer OTHER, SELFPAY ==
--- NOTE | ~2024-01-17 | XR_ITS ---
EXAMINATION: XR chest 2V DATE: 01/17/2024 15:27 INDICATION: Syncope TECHNIQUE: PA and lateral views of the chest were obtained. COMPARISON: Chest radiograph dated 10/10/2021 FINDINGS: The lungs remain clear with no focal airspace opacities, pulmonary edema, pleural effusion or pneumot horax. The cardiomediastinal silhouette is normal. Mild thoracic dextrocurvature. IMPRESSION: 1. No acute cardiopulmonary disease. Reviewed, dictated and finalized at location A.
[2024-01-17 15:02] VITALS: BP 119/71; PULSE 84; RESP 14; TEMP 36.7; O2SAT 100
--- NOTE | 2024-01-17 15:03 | ECG_ITS ---
Test Date: 2024-01-17 15:05:51 Measurements Intervals [place] Rate: 74 P: 59 WA: 143 QRS: 21 QRSD: 95 T: 40 QT: 368 QTc: 408 Interpretive Statements SINUS RHYTHM WITH SINUS ARRHYTHMIA BASELINE ARTIFACT- I, II, III, AVR, AVL, AVF NORMAL ECG No previous ECG available for comparison Electronically Signed On 01-17-2024 17:32:40 CDT by Ab Marquez D.O.
[2024-01-17 15:16] LABS: Basophils Absolute Auto 0.1 K/mm3 (0.0-0.1); Basophils Percent Auto 0.4 % (0.2-1.2); Eosinophils Absolute Auto 0.1 K/mm3 (0-0.3); Eosinophils Percent Auto 0.9 % (0-4.4); Hematocrit 40.9 % (37.0-47.0); Hemoglobin 14.2 g/dL (12.0-15.0); Immature Granulocyte Absolute 0.06 K/mm3 (0.00-0.031); Immature Granulocyte Percent A 0.4 % (0-0.5); Lymphocytes Absolute Auto 3.16 K/mm3 (0.9-3.2); Lymphocytes Percent Auto 22.2 % (18.3-44.2); Mean Corpuscular HGB Conc 34.7 g/dl (32-36); Mean Corpuscular Hemoglobin 29.6 pg (26-34); Mean Corpuscular Volume 85.4 fl (80-100); Mean Platelet Volume 9.6 fl (7.4-10.4); Monocytes Absolute Auto 0.7 K/mm3 (0.1-0.6); Neutrophils Absolute Auto 10.1 K/mm3 (1.3-6.7); Neutrophils Percent Auto 71.1 % (45.5-73.1); Platelet Count Result 323 k/mm3 (150-375); Red Blood Count 4.79 M/mm3 (4.2-5.4); Red Cell Distribution Width 12.6 % (11.5-14.5); White Blood Count 14.2 K/mm3 (4.5-10.0)
[2024-01-17 15:26] LABS: Alanine Aminotransferase 16 U/L (6-35); Albumin Level 4.4 g/dL (3.5-5.1); Alkaline Phosphatase 52 U/L (38-126); Anion Gap 11 mmol/L (4-12); Aspartate Amino Transferase 20 U/L (14-36); Bilirubin,Total 0.6 mg/dL (0.2-1.3); Blood Urea Nitrogen 14 mg/dL (7-17); Calcium 9.3 mg/dL (8.4-10.2); Carbon Dioxide 24 mmol/L (22-30); Chloride 100 mmol/L (98-107); Estimated Glomerular Filt Rate > 60; Glucose 108 mg/dL (65-110); Sodium 135 mmol/L (137-145)
[2024-01-17 16:16] VITALS: BP 96/56; PULSE 72
[2024-01-17 16:17] VITALS: BP 99/64; PULSE 79
[2024-01-17 16:19] VITALS: BP 101/66; PULSE 80
[2024-01-17] MEDS: SODIUM CHLORIDE 0.9% IV 1,000 ML 999 ML IV CONT (16:50)
[2024-01-17 16:56] VITALS: BP 108/78; PULSE 81; PULSE 85; RESP 14; TEMP 36.7; O2SAT 100
--- NOTE | 2024-01-17 17:12 | ED.DIZZY ---
HPI - Dizziness General Chief Complaint: Syncope Stated Complaint: syncope Time Seen by Provider: 01/17/24 16:32 History of Present Illness HPI Narrative: Patient is a 28-year-old female who presents to the emergency department this afternoon due to a syncopal episode. Patient states that she was playing outside with her kid when he scratched his forehead on something and she brought him inside to clean his wound. She states that she was sitting on the toilet and got lightheaded and passed out. Patient believes that she leaned over and hit her right side on the bathtub. Patient does not believe she hit her head. She states the only it feels sore is her right buttocks region. Patient admits that normally she does get lightheaded/near syncopal when she sees blood. States that on route to the emergency department she did feel nauseous and have 1 episode of vomiting but believes that is secondary to motion sickness. Patient states that she feels well right now and does not feel nauseous. Denies any chest pain or shortness of breath, any abdominal pain. Patient also denies any fevers or chills at home. No additional symptoms concerns visit. Related Data Home Medications Medication Instructions Recorded Confirmed No Home Medications 09/10/23 09/10/23 Allergies Allergy/AdvReac Type Severity Reaction Status Date / Time No Known Allergies Allergy Verified 09/10/23 12:50 Review of Systems Review of Systems: All systems are reviewed and are negative unless stated otherwise in the HPI. [facility] Past Medical History Medical History Anxiety IUP (intrauterine ), incidental Nexplanon insertion 11/20/2021 Obesity Surgical History Surgical History History of gynecological procedure Nexplanon removal /insertion -08/02/2018. Nexplanon removal 10/07/2020 Family History Family History Grandparent Diabetes mellitus Breast cancer Social History Social History Smoking status: Never smoker Alcohol intake: never Substance use: never Substance use type: does not use Lack of Transportation: No Lack of Food: Never True Current Housing: I Have Housing Concerned About Future Housing: No Difficulty Paying Gas/Electric Bills: No Difficulty Paying for Meds: No Currently Unemployed: No Education: High School Diploma/GED Difficulty w/ Childcare or Family Care: No Living arrangements: with family Occupation/Education: occupation Gender identity (if verbalized by the patient): Female Sexual Orientation (if Verbalized by the Patient): Straight or Heterosexual Spiritual care concerns: No Exam Narrative: General: Alert, awake, afebrile, in no acute distress. HEENT: PERRL, no rhinorrhea, no post nasal drip, oropharynx clear. Cardiovascular: Regular rate and rhythm, no murmurs, rubs or gallops, no peripheral edema. Respiratory: Clear to auscultation bilaterally, no tachypnea, no wheezing, no rhonchi, no rubs, no respiratory distress. Abdomen: Soft, nontender, nondistended, no rebound, no guarding, no peritoneal signs. Musculoskeletal: No joint swelling or deformity, normal muscle tone. Skin: No rashes or petechia, no signs of infection. Neurological: Alert and oriented to person, place, and time. Follows all commands. No focal deficits, speech is clear and fluent. Course Vital Signs Vital signs: Vital Signs Temperature 98.0 F 01/17/24 15:02 Pulse Rate 84 01/17/24 15:02 Respiratory Rate 14 01/17/24 15:02 Blood Pressure 119/71 01/17/24 15:02 Pulse Oximetry 100 01/17/24 15:02 Oxygen Delivery Room Air 01/17/24 15:02 Temperature 98.0 F 01/17/24 16:56 Pulse Rate 85 01/17/24 16:56 Respiratory Rate 14 01/17/24 16:56 Blood Pressure
== END 2024-01-17 17:55 | disposition home or self-care (01) ==
PROVIDERS: Student in an Organized Health Care Education/Training Program; Emergency Provider Emergency Medicine; PCP Physician Assistant
DX: R55 Syncope and collapse (principal)
CPT/HCPCS: 36415; 71046; 80053; 85025; 93005; 96360; 99284; J7030

== ENCOUNTER 2024-12-13 17:43 | Emergency (ER) | payer OTHER, SELFPAY ==
[2024-12-13 17:46] VITALS: BP 133/72; PULSE 77; RESP 16; TEMP 36.6; O2SAT 100
--- NOTE | 2024-12-13 18:03 | ED_ITS ---
HPI - Female Genitourinary General Chief complaint: Urogenital-Female Stated complaint: Urinary Problem Time Seen by Provider: 12/13/24 17:50 Source: patient Mode of arrival: ambulatory Limitations: no limitations History of Present Illness HPI Narrative: 29 yo F presents with urinary frequency, urgency, dysuria for 4 days. Has been taking OTC Azo for 2 days. Afebrile. No N/V. Denies . All systems reviewed and negative except as noted above. Related Data Home Medications ?Medication ?Instructions ?Recorded ?Confirmed ?Last Taken ?Type etonogestrel 68 mg subdermal 1 implant subdermal ONCE 11/16/24 11/16/24 Unknown History implant (Nexplanon) Allergies Allergy/AdvReac Type Severity Reaction Status Date / Time No Known Allergies Allergy Verified 12/13/24 17:51 [facility] Past Medical History Medical History Nexplanon insertion 11/20/2021 IUP (intrauterine ), incidental Obesity Anxiety Surgical History Surgical History History of gynecological procedure Nexplanon removal /insertion -08/02/2018. Nexplanon removal 10/07/2020 Family History Family History Grandparent Diabetes mellitus Breast cancer Social History Social History (Updated 08/17/24 @ 10:23 by Edmundo Farrar MA) Smoking status: Never smoker Alcohol intake: never Substance use: current Substance use type: marijuana Do You Feel Safe in your Home?: Yes Lack of Transportation: No Lack of Food: Never True Current Housing: I Have Housing Concerned About Future Housing: No Difficulty Paying Gas/Electric Bills: No Difficulty Paying for Meds: No Currently Unemployed: No Education: High School Diploma/GED Difficulty w/ Childcare or Family Care: No Living arrangements: with family Occupation/Education: occupation Gender identity (if verbalized by the patient): Female Sexual Orientation (if Verbalized by the Patient): Straight or Heterosexual Spiritual care concerns: No Comments At time of signature, agree with nursing past medical, surgical, social and family history. There is no relevant family history pertinent to the presenting complaint. Exam Narrative: GENERAL: This is a well-nourished, well-developed patient, in no apparent distress. HEAD: normocephalic, atraumatic. EYES: PERRL. Sclera clear/white. Vision is grossly intact. EARS: External ears normal NOSE: External nose normal NECK: Neck supple, non-tender without lymphadenopathy, masses or thyromegaly. CARDIOVASCULAR: Regular rate and rhythm without murmurs, gallops, or rubs. RESPIRATORY: Clear to auscultation. Breath sounds equal bilaterally. No wheezes, rales, or rhonchi. SKIN: warm, Dry, intact with no suspicious lesions or rash, good texture and turgor. NEURO: awake, alert, and oriented to person, place and time. There were no obvious focal neurologic abnormalities. EXTREMITIES: No joint tenderness, effusion, or edema noted. Course Course Level of Care: Express Care Visit Vital Signs Vital signs: Vital Signs Temperature 36.6 C 12/13/24 17:46 Pulse Rate 77 12/13/24 17:46 Respiratory Rate 16 12/13/24 17:46 Blood Pressure 133/72 12/13/24 17:46 Pulse Oximetry 100 12/13/24 17:46 Oxygen Delivery Room Air 12/13/24 17:46 Temperature 36.6 C 12/13/24 17:46 Pulse Rate 77 12/13/24 17:46 Respiratory Rate 16 12/13/24 17:46 Blood Pressure 133/72 12/13/24 17:46 Pulse Oximetry 100 12/13/24 17:46 Oxygen Delivery Room Air 12/13/24 17:46 Reviewed MDM - Female Genitourinary MDM Narrative Medical decision making narrative: unable to complete urine dip today due to bright orange urine from [id number] azo. Explain this to patient. Urine culture ordered. Prescribed antibiotic due to patient's urinary symptoms. Patient is well- appearing, nontoxic. Differential Diagnosis Differential diagnosis: Likely urinary tract infection Discharge Plan Discharge Clinical Impression: Urinary tract infection Qualifiers: Urinary tract infection type: site unspecified Patient Disposition: Home Condition: Stable Instructions: Antibiotic Form, Urinary Tract Infection in Women (ED) Additional Instructions: Take antibiotic as prescribed until gone. May continue to take [id number] azo as directed on packaging to treat urinary symptoms. Drink at least 64 oz of water a day. See your doctor if symptoms are not improving. Patient Language: Macedonian Prescriptions: New amoxicillin-pot clavulanate [Augmentin] 500-125 mg tablet 1 tablet PO BID 5 Days Qty: 10 0RF No Action Nexplanon 68 mg implant 1 implant subdermal ONCE Rx Instructions: as a single dose Follow-up/Referrals: Radha,ERIC Garcia [Primary Care Provider] - Time of Disposition: 18:01
== END 2024-12-13 18:04 | disposition home or self-care (01) ==
PROVIDERS: Emergency Provider Nurse Practitioner Family; PCP Physician Assistant
DX: N39.0 Urinary tract infection, site not specified (principal); E66.9 Obesity, unspecified; Z68.30 Body mass index [BMI] 30.0-30.9, adult; F12.90 Cannabis use, unspecified, uncomplicated
CPT/HCPCS: 87086; 99213; G0463